=== PATIENT | female | born 1965 | race Caucasian/White ===

== ENCOUNTER 2024-10-06 08:02 | Day surgery (SDC) | payer MEDICARE, MEDICAID ==
[~2024-10-06] VITALS: Ht 175.3 cm; Wt 101.5 kg
[2024-10-06] VITALS (22 sets, daily range): BP systolic 78–123; BP diastolic 42–95; PULSE 58–94; RESP 11–23; TEMP 97.3–98.5; O2SAT 92–99
[2024-10-06] MEDS: ceFAZolin 2gm in dextrose, iso 50 ML IV ONE (05:30)
[~2024-10-06 08:02] MED LIST: ALBU8HFA INH; AMLO2.5T5 PO; BUDE10.7 PO; LOSA100T58; albuterol 2.5 MG/3 ML nebule NEB PRN
[2024-10-06] MEDS: famotidine 20mg tablet PO ONE (08:59)
[2024-10-06] MEDS: ringers solution, lacted 1,000 ML IV SCH ×2 (08:59→10:00)
[2024-10-06] MEDS: vancomycin/NS 1 GM ADD-VANTAGE 250 ML X 1 DOSE IV ONE (09:00)
[2024-10-06 09:26] LABS: BASOPHILS # (AUTO) 0.1 X10'3 (0-0.2); BASOPHILS % (AUTO) 0.6 % (0-1); EOSINOPHILS # (AUTO) 0.1 X10'3 (0-0.9); EOSINOPHILS % (AUTO) 1.6 % (0-6); HEMATOCRIT 45.4 % (35.0-45.0); HEMOGLOBIN 15.4 g/dl (12.0-16.0); LYMPHOCYTES # (AUTO) 2.6 X10'3 (1.1-4.8); LYMPHOCYTES % (AUTO) 33.3 % (21-51); MEAN CORPUSCULAR HEMOGLOBIN 33.1 PG (27.0-31.0); MEAN CORPUSCULAR VOLUME 97.3 FL (78-98); MEAN PLATELET VOLUME 8.3 FL (7.4-10.4); MONOCYTES # (AUTO) 0.7 X10'3 (0-0.9); MONOCYTES % (AUTO) 8.4 % (2-12); NEUTROPHILS # (AUTO) 4.4 X10'3 (1.8-7.7); NEUTROPHILS % (AUTO) 56.1 % (42-75); PLATELET COUNT 285 X10'3 (140-440); RED BLOOD COUNT 4.66 X10'6 (4.20-5.60); RED CELL DISTRIBUTION WIDTH 13.8 % (11.5-14.5); WHITE BLOOD COUNT 7.9 X10'3 (4.5-11.0)
[2024-10-06] MEDS: tranexamic acid 650mg tablet PO ONE (09:48)
[2024-10-06] MEDS ORDERED: BUPIVACAINE/MELOXICAM 14 ML VIAL IL ONE (09:56)
[2024-10-06] MEDS ORDERED: ROPIVAcaine 0.5% (5mg/ml) 30ml vial ONE ×2 (09:56→12:59)
[2024-10-06] MEDS ORDERED: ondansetron/PF 4mg/2ml inj IV PRN (10:00)
[2024-10-06] MEDS ORDERED: morphine 2 MG/ML inj. syringe IV PRN (10:00)
[2024-10-06] MEDS ORDERED: meperidine/PF 25mg/ml syringe IV PRN ×2 (10:00)
[2024-10-06] MEDS ORDERED: enalaprilat 1.25mg/ml 2ml vial IV PRN (10:00)
[2024-10-06] MEDS ORDERED: proCHLORperazine 10 MG/2 ml inj IV PRN (10:00)
[2024-10-06] MEDS ORDERED: labetalol 20mg/4ml (5mg/ml) syringe IV PRN (10:00)
[2024-10-06 10:36] LABS: ALANINE AMINOTRANSFERASE 29 U/L (12-78); ALBUMIN 3.7 G/DL (3.4-5.0); ALBUMIN/GLOBULIN RATIO 0.9 (1.1-1.5); ALKALINE PHOSPHATASE 109 IU/L (46-116); ANION GAP 9 (8-16); ASPARTATE AMINO TRANSFERASE 13 U/L (10-37); BILIRUBIN,TOTAL 0.5 MG/DL (0.1-1.0); BLOOD UREA NITROGEN 24 MG/DL (7-18); BUN/CREATININE RATIO 25.5 (10.0-20.0); CALCIUM 9.3 MG/DL (8.5-10.1); CHLORIDE 105 MMOL/L (99-107); CREATININE 0.94 MG/DL (0.40-0.90); GLUCOSE 99 MG/DL (70-104); POTASSIUM 4.2 MMOL/L (3.5-5.1); SODIUM 138 MMOL/L (135-145); TOTAL CARBON DIOXIDE 24.1 MMOL/L (24-32); TOTAL PROTEIN 7.6 G/DL (6.4-8.2); eCRCL 69 ML/MIN; eGFR 61 ML/MIN
[2024-10-06] MEDS ORDERED: BUPIVAcaine/dex-water/PF 7.5 mg/ml 2ml ampul ONE (10:52)
[2024-10-06] MEDS ORDERED: fentaNYL/PF 50MCG/1 ML 2ML syringe ONE (11:02)
[2024-10-06] MEDS ORDERED: MIDAZolam 1 MG/ML 5ML VIAL ONE (11:02)
[2024-10-06] MEDS ORDERED: propofol inj 20 ML IV ONE (11:34)
[2024-10-06] MEDS: BUPIVACAINE/MELOXICAM 14 ML VIAL IL ONE (12:20)
[2024-10-06] MEDS ORDERED: naloxone 0.4 mg/ml inj IV PRN (13:20)
[2024-10-06] MEDS ORDERED: oxyCODONE IR 5mg (immed. release) tablet PO PRN (13:20)
[2024-10-06] MEDS ORDERED: diphenhydrAMINE 25mg capsule PO PRN ×2 (13:20)
[2024-10-06] MEDS ORDERED: non-formulary drug (albuterol inhaler (Pro-Air Inhaler) 2 PUFFS) INH PRN (13:20)
[2024-10-06] MEDS ORDERED: HYDROmorphone inj. 0.5 MG/0.5 ML DISP.SYRIN IV PRN (13:20)
[2024-10-06] MEDS ORDERED: magnesium hydroxide 30ml (MOM) UD suspension PO PRN (13:20)
[2024-10-06] MEDS ORDERED: bisacodyl 10mg suppository rectal RC PRN (13:20)
[2024-10-06] MEDS ORDERED: acetaminophen 325mg tablet PO PRN (13:20)
[2024-10-06] MEDS: meperidine/PF 25mg/ml syringe IV PRN (13:27)
[2024-10-06] MEDS: morphine 4 MG/ML inj SYRINge IV PRN (13:40)
[2024-10-06] MEDS: acetaminophen 1,000mg/100ml IV 100 ML IV ONE (13:52)
[2024-10-06] MEDS: acetaminophen 325mg tablet PO SCH (14:00)
[2024-10-06] MEDS: MIDAZolam 1 MG/ML 5ML VIAL IV ONE (14:00)
[2024-10-06] MEDS: midazolam 1 mg/ML 2ml injection ONE (14:00)
[2024-10-06] MEDS ORDERED: acetaminophen 1,000mg/100ml IV 100 ML IV SCH (14:00)
[2024-10-06] MEDS: HYDROmorphone 1 mg/ml syringe IV PRN (14:19)
[2024-10-06] MEDS: oxyCODONE IR 5mg (immed. release) tablet PO PRN (16:18)
[2024-10-06] MEDS: ceFAZolin/D5W- 1GM premix 50 ML IV SCH (17:47)
[2024-10-06] MEDS: Budesonide/Glycopyr/Formoterol (Breztri Aerosphere Inhaler) PO SCH (20:00)
[2024-10-06] MEDS: sennosides 8.6mg tablet PO SCH (20:30)
[2024-10-06] MEDS: potassium cl 20mEq in 1/2 NS 1,000 ML IV SCH (20:30)
[2024-10-06] MEDS: vancomycin/NS 1 GM ADD-VANTAGE 250 ML IV SCH (20:30)
[2024-10-06] MEDS: ondansetron/PF 4mg/2ml inj IV PRN (20:55)
[2024-10-07 02:00] VITALS: BP 99/61; PULSE 78; RESP 16; TEMP 98.1; O2SAT 95
[2024-10-07 06:00] VITALS: BP 97/48; PULSE 79; RESP 21; TEMP 98.6; O2SAT 94
[2024-10-07 07:21] LABS: BASOPHILS % (AUTO) 0.2 % (0-1); EOSINOPHILS % (AUTO) 0 % (0-6); HEMATOCRIT 39.2 % (35.0-45.0); HEMOGLOBIN 13.2 g/dl (12.0-16.0); LYMPHOCYTES # (AUTO) 1.1 X10'3 (1.1-4.8); LYMPHOCYTES % (AUTO) 11.4 % (21-51); MEAN CORPUSCULAR HEMOGLOBIN 32.8 PG (27.0-31.0); MEAN CORPUSCULAR HGB CONC 33.6 g/dL (33.0-36.5); MEAN CORPUSCULAR VOLUME 97.8 FL (78-98); MEAN PLATELET VOLUME 8.2 FL (7.4-10.4); MONOCYTES # (AUTO) 0.8 X10'3 (0-0.9); MONOCYTES % (AUTO) 8.4 % (2-12); NEUTROPHILS # (AUTO) 7.9 X10'3 (1.8-7.7); PLATELET COUNT 240 X10'3 (140-440); RED BLOOD COUNT 4.01 X10'6 (4.20-5.60); RED CELL DISTRIBUTION WIDTH 13.3 % (11.5-14.5); WHITE BLOOD COUNT 9.9 X10'3 (4.5-11.0)
[2024-10-07] MEDS: losartan 50mg tablet PO SCH (08:00)
[2024-10-07] MEDS: amLODIPine 2.5mg tablet PO SCH (08:00)
[2024-10-07] MEDS: aspirin 325mg tablet PO SCH (08:34)
[2024-10-07 08:35] VITALS: RESP 21; O2SAT 94
[2024-10-07 09:10] LABS: ANION GAP 8 (8-16); CHLORIDE 104 MMOL/L (99-107); POTASSIUM 4.8 MMOL/L (3.5-5.1); SODIUM 137 MMOL/L (135-145); TOTAL CARBON DIOXIDE 24.8 MMOL/L (24-32)
[2024-10-07 10:00] VITALS: BP 88/48; PULSE 85; RESP 16; TEMP 98; O2SAT 96
[2024-10-07] MEDS ORDERED: celeCOXIB 100mg capsule PO SCH (20:00)
[2024-10-08] MEDS ORDERED: acetaminophen 325mg tablet PO PRN (18:20)
== END 2024-10-07 16:34 | disposition home or self-care (01) ==
LOC: PAS 08:02 → ORTHO 4S 13:16 → PAS 10-07 16:34
PROVIDERS: ATTEND Orthopaedic Surgery
DX: M17.11 Unilateral primary osteoarthritis, right knee (principal); I10 Essential (primary) hypertension; J44.9 Chronic obstructive pulmonary disease, unspecified; G47.33 Obstructive sleep apnea (adult) (pediatric); G89.18 Other acute postprocedural pain; E66.9 Obesity, unspecified; Z96.651 Presence of right artificial knee joint; Z87.891 Personal history of nicotine dependence; Z98.51 Tubal ligation status; Z91.013 Allergy to seafood; Z79.899 Other long term (current) drug therapy; Z98.890 Other specified postprocedural states
CPT/HCPCS: 20985; 27447; 36415; 64447; 64999; 80051; 80053; 85025; 87081; 97110; 97116; 97161; 97530; A4215; A4615; A6402; A6449; A7000; C1776; C9088; J0131; J0690; J1171; J2175; J2250; J2270; J2405; J2704; J2795; J3010; J3370; J3480; J3490; J7030; J7120; S2900; Z7506; Z7508; Z7512; Z7610; G0378